=== PATIENT | female | born 1965 | race Caucasian/White ===

== ENCOUNTER → 2021-08-17 14:35 | Outpatient (BNVA) | payer BC, SELFPAY | PROVIDERS: Family Provider Internal Medicine; PCP Internal Medicine; Visit Provider Obstetrics & Gynecology | DX: Z12.4 Encounter for screening for malignant neoplasm of cervix (principal) | CPT/HCPCS: 87624 ==

== ENCOUNTER 2022-01-11 07:34 | Outpatient (CLI) | payer BC, SELFPAY ==
--- NOTE | 2022-01-11 07:41 | MM_ITS ---
WS: [id number] BILATERAL SCREENING DIGITAL BREAST TOMOSYNTHESIS MAMMOGRAM WITH CAD HISTORY: SCREENING COMPARISON: 06/12/2018 Bilateral CC and MLO views with tomosynthesis and synthetic mammography submitted. Computer aided det ection analyzed. Breast composition: The breasts are heterogeneously dense, which may obscure small masses. No suspici ous masses, microcalcifications or architectural distortion. Patchy scattered fibroglandular densitie s throughout each breast. No interval change. MM/[place] [id number] IMPRESSION: BI-RADS: 2-Benign FOLLOW UP: 1 Year Follow-up
== END 2022-01-11 07:35 | disposition home or self-care (01) ==
PROVIDERS: PCP Internal Medicine; Visit Provider Family Medicine
DX: Z12.31 Encounter for screening mammogram for malignant neoplasm of breast (principal)
CPT/HCPCS: 77063; 77067

== ENCOUNTER → 2022-08-23 10:50 | Outpatient (BNVA) | payer OTHER, SELFPAY | PROVIDERS: PCP Family Medicine; Visit Provider Obstetrics & Gynecology | DX: Z00.00 Encounter for general adult medical examination without abnormal findings (principal) | CPT/HCPCS: 80053; 80061; 83721; 84443; 85025 ==

== ENCOUNTER → 2024-01-07 10:26 | Outpatient (BNVA) | payer OTHER, SELFPAY | PROVIDERS: PCP Family Medicine; Visit Provider Family Medicine | DX: Z78.0 Asymptomatic menopausal state (principal); E11.9 Type 2 diabetes mellitus without complications | CPT/HCPCS: 80053; 80061; 82607; 83880; 84443; 85025 ==

== ENCOUNTER 2024-02-24 10:03 | Emergency (ER) | payer OTHER, SELFPAY ==
[2024-02-24 10:10] VITALS: BP 197/124; PULSE 109; RESP 20; TEMP 36.7; O2SAT 97
--- NOTE | 2024-02-24 11:04 | XRR_ITS ---
PROCEDURE INFORMATION: Exam: XR Chest Exam date and time: 02/24/2024 11:17 AM Age: 58 years old Clinical indication: Cough and dyspnea; Patient HX: High blood pressure; Additional info: Dyspnea/cough TECHNIQUE: Imaging protocol: Radiologic exam of the chest. Views: 1 view. COMPARISON: No relevant prior studies available. FINDINGS: Lungs: Unremarkable. No consolidation. Pleural spaces: Unremarkable. No pleural effusion. No pneumothorax. Heart/Mediastinum: Unremarkable. No cardiomegaly. Bones/joints: Unremarkable. XR/XR chest 1V portable [id number] IMPRESSION: No acute findings.
--- NOTE | 2024-02-24 11:04 | ECG_ITS ---
[facility] Test Date: 2024-02-24 Pat Name: Hallie Solo Department: Room: Gender: Female [employer] Designer: : 1965 Requested By: Gregorio Kinney Order Number: [id number] Cindi MD: Mc Kumar M.D. Measurements Intervals [place] Rate: 90 P: 59 ID: [id number] QRS: -64 QRSD: 100 T: 64 QT: 369 QTc: 453 Interpretive Statements SINUS RHYTHM POSSIBLE LEFT ATRIAL ENLARGEMENT [-0.1mV P-WAVE IN V1/V2] PATTERN CONSISTENT WITH PULMONARY DISEASE INCOMPLETE RIGHT BUNDLE BRANCH BLOCK [90+ ms QRS DURATION, TERMINAL R IN V1/V2, 40+ ms S IN I/aVL/V4/V5/V6] LEFT ANTERIOR FASCICULAR BLOCK [QRS AXIS <= -45, QR IN I, RS IN II] No previous ECG available for comparison Electronically Signed On 02-24-2024 23:31:58 CDT by Mc Kumar M.D. [id number]
--- NOTE | 2024-02-24 11:05 | W.ED.GENADLT ---
HPI - General Adult General: Chief complaint: General Medical Stated complaint: high blood presure, lose of vision Time Seen by Provider: 02/24/24 10:07 History of Present Illness: 58-year-old female presents to the emergency room with complaints of elevated blood pressure and visual disturbances. This been going on for a couple of weeks intermittently is worse today. No head trauma. She denies chest pain. She is on losartan and hydrochlorothiazide. No history of previous CVA. She has been going through menopause and is recently was started on Premarin as well. Associated symptoms: Deny chest pain, dyspnea or rash Related Data Home Medications Medication Instructions Recorded Confirmed conjugated estrogens 0.625 mg 0.625 mg PO DAILY 02/24/24 02/24/24 tablet (Premarin) Previous Rx's Medication Instructions Recorded hydrochlorothiazide 12.5 mg tablet 12.5 mg PO DAILY #30 tabs 02/12/24 losartan 25 mg tablet 25 mg PO BID #60 tabs 02/12/24 metoprolol succinate 25 mg 25 mg PO DAILY #30 tabs 02/24/24 tablet,extended release 24 hr (Toprol XL) ondansetron HCl 4 mg tablet 4 mg PO Q6H PRN nausea and 02/24/24 vomiting #20 tabs Allergies Allergy/AdvReac Type Severity Reaction Status Date / Time aspirin Allergy Intermediate hives Verified 02/12/24 10:33 mesalamine [From Asacol] Allergy hives Verified 02/12/24 10:33 Penicillins Allergy hives Verified 02/12/24 10:33 Review of Systems Const: Denies: fever(s) or chills Card: Denies: chest pain Resp: Denies: dyspnea GI: Denies: abdominal pain : Denies: dysuria, urinary frequency or urinary urgency Musc: Denies: neck pain or back pain Skin/Breast: Denies: rash PFSH ED PFSH: Medical History Essential hypertension Menopause Surgical History History of tonsillectomy and adenoidectomy (~1974) age 8 Family History Mother Hypertension Hypercholesteremia Stroke Denies family history of Diabetes CAD (coronary artery disease) Clotting disorder Chronic kidney disease (CKD) Bleeding disorder Cancer Social History (Updated 02/12/24 @ 10:45 by Merritt Hester NP) Smoking and tobacco/nicotine status: never used tobacco/nicotine Alcohol intake: never Substance/Drug Use: current Substance/Drug use frequency: Special occassions/opportunity only Physical Exam Const: COMMON NORMALS: no acute distress GENERAL APPEARANCE: cooperative and comfortable ORIENTATION/CONSCIOUSNESS: Yes awake, Yes oriented to person, Yes oriented to place and Yes oriented to time HENMT: COMMON NORMALS: normocephalic, atraumatic and hearing grossly normal bilaterally HEAD & SCALP: normocephalic and atraumatic Resp: COMMON NORMALS: normal respiratory effort, No retractions, No use of accessory muscles and clear to auscultation bilaterally AUSCULTATION: clear to auscultation bilaterally Cardio: COMMON NORMALS: regular rate, regular rhythm and No murmurs present (Cardio) RATE: regular rate RHYTHM: regular rhythm GI: COMMON NORMALS: Soft to palpation and No hepatosplenomegaly present AUSCULTATION: Yes normoactive bowel sounds PALPATION: Yes Soft to palpation, No Tenderness to palpation present (GI), No Guarding due to palpation present (GI) and Yes No hepatosplenomegaly present Extremity: COMMON NORMALS: normal to inspection, capillary refill normal, no clubbing, cyanosis or edema, no calf tenderness and no pedal edema Neuro: SENSORIUM/ORIENTATION: Yes oriented to person, Yes oriented to place and Yes oriented to time OTHER: No focal neurologic deficits noted NIH is 0. Patient does have a baseline speech impediment her states that time she has had more difficulty than usual with her speech however currently is at her normal baseline Skin: COMMON NORMALS: no rashes or lesions noted GENERAL SKIN EXAM: no rashes or lesions noted Course Vital Signs: Vital signs: Vital Signs Temperature 98.0 F 02/24/24 10:10 Pulse Rate 93 02/24/24 15:25 Respiratory Rate 18 02/24/24 15:25 Blood Pressure 180/102 02/24/24 15:25 Pulse Oximetry 100 02/24/24 15:25 Oxygen Delivery Me thod Room Air 02/24/24 11:41 MDM - General Adult Medical Decision Making Blood pressure improved to 136 range this time I discussed with her the CT findings after that her blood pressure did go up quite a bit I think this is more anxiety we did not treated any further. She acknowledged as well that she felt it was more anxiety related. She had already stopped her Premarin and advised her to stay off of that for now continue the hydrochlorothiazide and losartan add Toprol-XL 25 p.o. daily. She can use ondansetron for nausea. She was hypokalemic which was treated with oral potassium supplementation. CT shows significant liver masses will require further evaluation. Liver enzymes are also elevated discussed with her primary care physician he will arrange further imaging and biopsy of these masses. Medical Records I reviewed the patient's medical records. Lab Data I reviewed the patient's lab results. 02/24/24 11:25 02/24/24 11:25 Radiology Impressions Chest X-Ray 02/24/24 11:04 IMPRESSION: No acute findings. Abdomen/Pelvis CT 02/24/24 12:03 IMPRESSION: 1. Markedly abnormal liver. Liver is markedly enlarged with multiple masses throughout the liver. These masses are very large and extend through greater than 50% of the normal liver parenchyma. Highly suspicious for metastatic disease until proven otherwise. 2. Small amount of fluid along the RIGHT lobe of the liver and in the RIGHT pelvis. 3. Curvilinear and round calcifications in the gallbladder. Gallbladder is poorly visualized. 4. Possible pancreatic head mass. Pancreatic head mass versus adenopathy or caudate lobe enlargement with neoplasm. 5. No renal obstruction. 6. Patient will need additional work-up of the abdominal findings. RIGHT upper quadrant ultrasound, PET/CT imaging, CT abdomen and pelvis with IV and oral contrast may all be of benefit. Gallbladder Ultrasound 02/24/24 12:34 IMPRESSION: 1. Markedly enlarged liver with multiple, large masses. Masses are on a background of hepatic steatosis. Masses were confirmed by noncontrast CT also. Liver and pancreas need to be further evaluated. Recommend follow-up PET/CT imaging and CT abdomen and pelvis with IV and oral contrast. Dual phase imaging of the abdomen CT recommended. Good oral contrast will be necessary. 2. Contracted gallbladder with stones. Head CT 02/24/24 13:28 IMPRESSION: 1. No enhancing intracranial mass. No evidence for metastatic disease to the brain by CT. 2. Mild volume loss and atrophy. No prior infarct. 3. No sinus disease. Laboratory Results WBC 17.34 10^3/uL (3.29-11.43) H 02/24/24 11:25 RBC 5.09 10^6/uL (3.85-5.65) 02/24/24 11:25 Hgb 15.10 g/dL (11.27-16.99) 02/24/24 11:25 Hct 46.0 % (36-47) 02/24/24 11:25 MCV 90.4 fl (85-98) 02/24/24 11:25 MCH 29.7 pg (27-33) 02/24/24 11:25 MCHC 32.8 g/dL (30-55) 02/24/24 11:25 RDW 15.3 % (12.1-15.1) H 02/24/24 11:25 Plt Count 415 10^3/cmm (157-399) H 02/24/24 11:25 MPV 8.7 fL (7.4-10.4) 02/24/24 11:25 Neut % (Auto) 82.1 % 02/24/24 11:25 Lymph % (Auto) 10.1 % 02/24/24 11:25 Millard % (Auto) 6.3 % 02/24/24 11:25 Eos % (Auto) 0.0 % 02/24/24 11:25 Baso % (Auto) 0.2 % 02/24/24 11:25 Neut # (Auto) 14.25 10^3/uL (1.8-7.7) H 02/24/24 11:25 Lymph # (Auto) 1.8 10^3/uL (0.8-4.8) 02/24/24 11:25 Millard # (Auto) 1.1 10^3/uL (0.2-0.9) H 02/24/24 11:25 Eos # (Auto) 0.0 10^3/uL (0.0-0.8) 02/24/24 11:25 Baso # (Auto) 0.0 10^3/uL (0.0-0.1) 02/24/24 11:25 Nucleated RBC % (auto) 0 % 02/24/24 11:25 Nucleated RBCs # 0.0 /100WBC 02/24/24 11:25 Sodium 140 mmol/L (136-145) 02/24/24 11:25 Potassium 2.9 mmol/L (3.5-5.1) L 02/24/24 11:25 Chloride 97 mmol/L (98-107) L 02/24/24 11:25 Carbon Dioxide 26 mmol/L (22-29) 02/24/24 11:25 Anion Gap 19.9 (5-19) H 02/24/24 11:25 BUN 19 mg/dL (6-20) 02/24/24 11:25 Creatinine 0.7 mg/dL (0.5-0.9) 02/24/24 11:25 GFR Calculation 85.9 mL/min (90-130) L 02/24/24 11:25 Glucose 106 mg/dL (65-115) 02/24/24 11:25 Calculated Osmolality 293 mOsm/kg (285-295) 02/24/24 11:25 Calcium 8.9 mg/dL (8.5-10.5) 02/24/24 11:25 Total Bilirubin 0.5 mg/dL (0.15-1.2) 02/24/24 11:25 AST 236 U/L (0-32) H 02/24/24 11:25 ALT 113 U/L (0-33) H 02/24/24 11:25 Alkaline Phosphatase 314 U/L (35-105) H 02/24/24 11:25 Total Protein 7.1 g/dL (6.6-8.7) 02/24/24 11:25 Albumin 4.0 g/dL (3.5-5.2) 02/24/24 11:25 Globulin 3.1 g/dL (1.3-4.6) 02/24/24 11:25 Lipase 14 U/L (13-60) 02/24/24 11:25 Urine Color Yellow (Yellow) 02/24/24 11:50 Urine Appearance Clear (CLEAR) 02/24/24 11:50 Urine pH 8 (5-7) A 02/24/24 11:50 Ur Specific [place] 1.010 (1.005-1.030) 02/24/24 11:50 Urine Protein Neg (Negative) 02/24/24 11:50 Urine Glucose (UA) Norm (Normal) 02/24/24 11:50 Urine Ketones Negative (Negative) 02/24/24 11:50 Urine Blood Neg (Negative) 02/24/24 11:50 Urine Nitrate Negative (Negative) 02/24/24 11:50 Urine Bilirubin Neg (Negative) 02/24/24 11:50 Urine Urobilinogen Norm mg/dL (Negative) 02/24/24 11:50 Ur Leukocyte Esterase Negative (Negative) 02/24/24 11:50 Amorphous Sediment Not Reportable 02/24/24 11:50 Hepatitis A IgM Ab Non-reactive (Nonreactive) 02/24/24 11:25 Hep Bs Antigen Non-reactive (Nonreactive) 02/24/24 11:25 Hep B Core IgM Ab Non-reactive (Nonreactive) 02/24/24 11:25 Hepatitis C Antibody Non-reactive (Nonreactive) 02/24/24 11:25 All radiology interpretation(s) finalized by discharge Discharge Plan Discharge Patient Disposition: Home Clinical Impression: Essential hypertension, Liver masses, Pancreatic mass Condition: Stable Prescriptions: New ondansetron HCl 4 mg tablet 4 mg PO Q6H PRN (Reason: nausea and vomiting) Qty: 20 0RF Toprol XL 25 mg tablet extended release 24 hr 25 mg PO DAILY Qty: 30 0RF No Action losartan 25 mg tablet 25 mg PO BID Qty: 60 0RF hydrochlorothiazide 12.5 mg tablet 12.5 mg PO DAILY Qty: 30 0RF Premarin 0.625 mg tablet 0.625 mg PO DAILY Discharge Orders: Discharge ED (Routine); Ordered 02/24/24 Ordered By: Gregorio Ceballos Referrals: Suman Stark MD [Primary Care Provider] - Discharge Diet: Usual diet Discharge Activity: Increase activity as tolerated Patient Instructions: Opioid Safety, Pain Management Activity Restrictions/Additional Instructions: Thank you for choosing [facility] for your healthcare needs today. It is very important that you follow up as instructed or that you return to the Emergency Department should you have concerns or if your condition changes or worsens in any way. You were seen in the emergency room with complaints of elevated blood pressure. CT of your head was negative. Do recommend you continue your current blood pressure medications and started on metoprolol XL 25 mg once daily you should follow-up with your primary care doctor to recheck your blood pressure. Additionally labs showed elevated liver functions that will require further evaluation. I have discussed with your primary care doctor recommend that you follow-up with him as soon as you are able and he will make arrangements for further evaluation including possible further imaging and biopsy if deemed appropriate. Coding Level of Care Code ED Non Destructive Evaluation Manager for Thang Sesay NIH stroke score NIHSS Level Of Consciousness - 1a: 0 Level Of Consciousness Questions - 1b: Both Correct Level Of Consciousness Commands - 1c: Both Correct Best Gaze - 2: Normal Visual Serrano - 3: No Visual Loss Facial Palsy - 4: Normal Motor Arm Right - 5: No Drift Motor Arm Left - 5: No Drift Motor Leg Right - 6: No Drift Motor Leg Left - 6: No Drift Limb Ataxia - 7: Absent Sensory - 8: Normal Best Language - 9: No Aphasia Dysarthia - 10: Normal (Patient has baseline speech impediment due to hearing loss) Extinction And Inattention - 11: 0 Score Total Score: 0
[2024-02-24] MEDS: amlodipine 10 mg Tablet PO (11:13)
[2024-02-24] MEDS: labetalol 5 mg/mL SDV 20mL 10 MG IVP (11:30)
[2024-02-24] MEDS: hyDRALAzine 20 mg/mL INJ 1 mL 10 MG IVP (11:30)
[2024-02-24 11:36] LABS: Basophils % 0.2 %; Lymphocytes # 1.8 10^3/uL (0.8-4.8); Lymphocytes % 10.1 %; Mean Corpuscular HGB Conc 32.8 g/dL (30-55); Mean Corpuscular Hemoglobin 29.7 pg (27-33); Mean Corpuscular Volume 90.4 fl (85-98); Mean Platelet Volume 8.7 fL (7.4-10.4); Monocytes # 1.1 10^3/uL (0.2-0.9); Monocytes % 6.3 %; Neutrophils # 14.25 10^3/uL (1.8-7.7); Neutrophils % 82.1 %; Nucleated Red Blood Cells % 0 %; Platelet Count 415 10^3/cmm (157-399); Red Blood Count 5.09 10^6/uL (3.85-5.65); Red Cell Distribution Width 15.3 % (12.1-15.1); White Blood Count 17.34 10^3/uL (3.29-11.43)
[2024-02-24 11:41] VITALS: BP 179/111; PULSE 87; RESP 17; O2SAT 97
[2024-02-24 11:52] LABS: Alanine Aminotransferase 113 U/L (0-33); Alkaline Phosphatase 314 U/L (35-105); Anion Gap 19.9 (5-19); Aspartate Amino Transferase 236 U/L (0-32); Blood Urea Nitrogen 19 mg/dL (6-20); Calcium 8.9 mg/dL (8.5-10.5); Carbon Dioxide 26 mmol/L (22-29); Chloride 97 mmol/L (98-107); Creatinine Clr Calc Pharmacy 91.2069; Globulin 3.1 g/dL (1.3-4.6); Glomerular Filtration Rate 85.9 mL/min (90-130); Glucose 106 mg/dL (65-115); Lipase 14 U/L (13-60); Osmolality Calculated 293 mOsm/kg (285-295); Sodium 140 mmol/L (136-145); Total Bilirubin 0.5 mg/dL (0.15-1.2); Total Protein 7.1 g/dL (6.6-8.7)
[2024-02-24 11:54] LABS: Charge for UA Resulting for Rev
[2024-02-24 11:59] LABS: Bilirubin Urine Neg (Negative); Blood Urine Neg (Negative); Glucose Urine UA Norm (Normal); Ketones Urine Negative (Negative); Leukocyte Esterase Urine Negative (Negative); Nitrate Urine Negative (Negative); Protein Urine Neg (Negative); Urine Appearance Clear (CLEAR); Urine Color Yellow (Yellow); Urobilinogen Urine Norm (Negative); pH Urine 8 (5-7)
[2024-02-24 12:02] LABS: Potassium 2.9 mmol/L (3.5-5.1)
--- NOTE | 2024-02-24 12:03 | CT_ITS ---
WS: [id number] CT ABDOMEN AND PELVIS NONCONTRAST HISTORY: Abdominal pain TECHNIQUE: Imaging performed through the abdomen and pelvis. Coronal and sagittal reformats are submi tted. All CT scans at [facility] use at least one of these dose optimization techniques: auto mated exposure control; mA and/or kV adjustment per patient size (includes targeted exams where dose is matched to clinical indication); or iterative reconstruction. DLP: 664.18 mGy.cm COMPARISON: None available. Lower thorax: Lung bases are clear. Visualized heart is normal. No hiatal hernia. Liver: Markedly abnormal liver. Liver is enlarged extending over a length of 22 cm and transversely b y 24 cm. Areas of decreased attenuation throughout the liver are highly suspicious for liver masses. One of the largest masses approaches 12.7 x 10.6 cm. There are masses within the RIGHT and LEFT lobes of the liver replacing majority of the normal liver parenchyma. Gallbladder: There is a focal cluster of calcifications in the gallbladder fossa. These are round and curvilinear calcifications. Suspect this may be a porcelain gallbladder stone filled gallbladder. A partially distended fluid-filled gallbladder is also present. Pancreas: Pancreas is poorly visualized. There is a hypoechoic mass in the region of the pancreatic h ead measuring 2.6 x 2.2 cm. This but could potentially represent a pancreatic head mass. The distal p ancreas is mildly atrophic. Spleen: Normal. Adrenal glands: Normal. No mass. Right kidney: Normal size kidney with no mass or hydronephrosis. Left kidney: Normal size kidney with no mass or hydronephrosis. Aorta: Normal abdominal aorta, no aneurysm or atherosclerosis. There is a small amount of fluid along the RIGHT lobe of the liver towards the paracolic gutter. Smal l amount of free fluid in the pelvis. No free air. Lymph node 10 mm. Additional lymph nodes may be present in the sally hepatis but not identified witho ut IV and oral contrast. GI tract: Stomach is being posteriorly positioned and compressed by the markedly enlarged liver. No s mall bowel obstruction. Mild diverticular disease in the distal colon. No constipation or obstruction of the colon. Appendix is not definitely identified. Abdominal wall: Negative. No hernia. Pelvis: No adenopathy. Tiny amount of free fluid in the RIGHT pelvis. Negative bladder. Osseous structures: Grade 1 anterolisthesis L5 with bilateral pars defects at L5. No destructive bone lesions. CT/CT abdomen pelvis wo con [id number] IMPRESSION: 1. Markedly abnormal liver. Liver is markedly enlarged with multiple masses th roughout the liver. These masses are very large and extend through greater than 50% of the normal liver parenchyma. Highly suspicious for metastatic disease u ntil proven otherwise. 2. Small amount of fluid along the RIGHT lobe of the liver and in the RIGHT pe lvis. 3. Curvilinear and round calcifications in the gallbladder. Gallbladder is poo rly visualized. 4. Possible pancreatic head mass. Pancreatic head mass versus adenopathy or ca udate lobe enlargement with neoplasm. 5. No renal obstruction. 6. Patient will need additional work-up of the abdominal findings. RIGHT upper quadrant ultrasound, PET/CT imaging, CT abdomen and pelvis with IV and oral co ntrast may all be of benefit.
[2024-02-24] MEDS: potassium chloride oral liq 20 mEq/15 mL UDC 40 MEQ PO (12:32)
--- NOTE | 2024-02-24 12:34 | US_ITS ---
WS: [id number] RIGHT UPPER QUADRANT ULTRASOUND HISTORY: elevated LFTS COMPARISON: None available. Liver: 24.6 cm in length. Markedly enlarged liver. Very abnormal liver. There are multiple masses thr oughout the liver. These masses are on a background of hepatic steatosis. The masses are of slight in creased echogenicity and variable echogenicity. Masses are difficult to define due to the background of hepatic steatosis. Largest mass identified measures 7.2 x 7.6 x 7.7 cm. Portal Vein: Loss of the normal portal vein waveform. More cyclical waveform is identified within nor mal. Gallbladder: Mildly contracted gallbladder with stones. CBD: 0.3 cm Pancreas: Not well visualized. Cannot confirm or exclude pancreatic head mass. Right kidney: 10.9 cm in length. Normal size and echogenicity. No hydronephrosis or mass. Aorta and IVC: Unremarkable abdominal aorta and IVC. The ascites seen by CT is not visualized by ultrasound. US/US gall bladder [id number] IMPRESSION: 1. Markedly enlarged liver with multiple, large masses. Masses are on a backgr ound of hepatic steatosis. Masses were confirmed by noncontrast CT also. Liver and pancreas need to be further evaluated. Recommend follow-up PET/CT imaging a nd CT abdomen and pelvis with IV and oral contrast. Dual phase imaging of the a bdomen CT recommended. Good oral contrast will be necessary. 2. Contracted gallbladder with stones.
[2024-02-24 12:54] LABS: Hepatitis A Antibody IgM Non-Reactive (Nonreactive); Hepatitis B Core IgM Non-Reactive (Nonreactive); Hepatitis B Surface Antigen Non-Reactive (Nonreactive); Hepatitis C Virus Antibody Non-Reactive (Nonreactive)
[2024-02-24 13:00] VITALS: BP 136/78
--- NOTE | 2024-02-24 13:21 | PC.PHAR ---
Pt has stopped Premarin 0.625mg
--- NOTE | 2024-02-24 13:28 | CT_ITS ---
WS: [id number] CT HEAD WITH AND WITHOUT CONTRAST HISTORY: liver mass/vision changes TECHNIQUE: Noncontrast 2.5 mm axial images obtained from the vertex to the skull base. Additional ida ging performed at 2.5 mm axial images status post IV contrast. Bone and soft tissue windows are revie wed. All CT scans at [facility] use at least one of these dose optimization techniques: autom ated exposure control; mA and/or kV adjustment per patient size (includes targeted exams where dose i s matched to clinical indication); or iterative reconstruction. CONTRAST: Omnipaque 350; 100 mL IV. DLP: 2135.78 mGy.cm COMPARISON: None available. No acute intracranial hemorrhage, edema or midline shift. Mild volume loss and very minimal small ves crystal disease. No prior infarct. No focal area of edema or sulcal effacement. No enhancing mass or vascular malformations identified. Dural venous sinuses are normally enhancing. Visualized [place] is unremarkable. Paranasal sinuses as visualized: Clear. Mastoid air cells: Clear. Calvarium and scalp: Intact. CT/CT head wo/w con [id number] IMPRESSION: 1. No enhancing intracranial mass. No evidence for metastatic disease to the b rain by CT. 2. Mild volume loss and atrophy. No prior infarct. 3. No sinus disease.
[2024-02-24] MEDS: iohexol 350 mg/mL 500 mL Btl (per mL) IV (13:41)
[2024-02-24 15:25] VITALS: BP 180/102; PULSE 93; RESP 18; O2SAT 100
== END 2024-02-24 15:27 | disposition home or self-care (01) ==
PROVIDERS: Emergency Provider Family Medicine; PCP Family Medicine
DX: I10 Essential (primary) hypertension (principal); K86.9 Disease of pancreas, unspecified; R16.0 Hepatomegaly, not elsewhere classified
CPT/HCPCS: 70470; 71045; 74176; 76705; 80053; 80074; 81003; 81015; 83690; 85025; 93005; 96374; 96375; 99285; J0360; J3490; Q9967

== ENCOUNTER 2024-03-02 08:02 | Outpatient (CLI) | payer OTHER, SELFPAY ==
--- NOTE | 2024-03-02 08:30 | CTR_ITS ---
PROCEDURE INFORMATION: Exam: CT Abdomen And Pelvis Without And With Contrast Exam date and time: 03/02/2024 10:08 AM Age: 58 years old Clinical indication: Abnormal findings; Abnormal radiologic finding of the abdomen; Radiologic exam and body structure: US gb; Patient HX: Liver masses f/u. Liver protocol; Additional info: Liver masses, CT abdomen and pelvis with iv and oral contrast. Dual phase TECHNIQUE: Imaging protocol: Computed tomography of the abdomen and pelvis without and with contrast. Radiation optimization: All CT scans at this facility use at least one of these dose optimization techniques: automated exposure control; mA and/or kV adjustment per patient size (includes targeted exams where dose is matched to clinical indication); or iterative reconstruction. Contrast material: OMNI 350; Contrast volume: 100 ml; Contrast route: INTRAVENOUS (IV); COMPARISON: CT abdomen pelvis wo con [id number] 02/24/2024 12:37 PM RADIATION DOSE METRICS: Total DLP (mGy-cm): 1876.68 FINDINGS: Lungs: No significant infiltrate or effusion is seen within the visualized lung bases. Liver: Liver is enlarged and demonstrates multiple large size heterogeneous masses with partial enhancement when correlating all imaging sequences. These become more delineated on the venous and delayed IV contrast images in relation to the arterial phase IV contrast images, though with significant low-density component suggesting necrotic masses. Gallbladder and biliary ducts: Multiple gallstones or cholelithiasis along with probable component of gallbladder wall calcification or porcelain gallbladder. This was noted with prior exam. No significant biliary ductal dilatation. Pancreas: Heterogeneous predominant hypodense irregular mass is seen at the body of the pancreas inferior to the left lobe of the liver, best delineated on the arterial phase IV contrast images. This mass measures approximately 4 x 3 cm. No significant ductal dilatation. Spleen: Normal. No splenomegaly. Adrenal glands: Normal. No mass. Kidneys and ureters: Normal. No hydronephrosis. Stomach and bowel: No obstruction. No significant mucosal thickening. A few noninflamed scattered colonic diverticula. Appendix: No evidence of appendicitis. Intraperitoneal space: Small amount of free fluid along the right lobe of the liver. No significant ascites otherwise. No free air. Vasculature: Nonaneurysmal abdominal aorta. Major vascular structures appear patent. Lymph nodes: Periportal and upper periaortic lymphadenopathy suggested. Urinary bladder: Mild nonspecific urinary bladder wall thickening. Correlate with urinalysis otherwise. Reproductive: Unremarkable as visualized. Bones/joints: Spondylotic change of the spine with degenerative disc disease L5-S1 and [id number] spondylolisthesis L5-S1. No acute osseous abnormality. Soft tissues: Unremarkable. CT/CT abdomen pelvis wo/w [id number] IMPRESSION: 1. Heterogeneous predominant hypodense irregular mass is seen in the body of the pancreas inferior to the left lobe of the liver, best delineated on the arterial phase images, measuring approximately 4 x 3 cm. Pancreatic malignancy is the main consideration particularly with findings of multiple large heterogeneous/partially necrotic masses within the liver suggestive of metastatic disease. Secondary hepatomegaly. 2. Periportal and upper periaortic lymphadenopathy suggested. Small amount of free fluid noted about the margin of the right lobe of the liver as well. 3. 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 4. PET-CT imaging could be performed for further evaluation otherwise.
[2024-03-02] MEDS: iohexol 350 mg/mL 500 mL Btl (per mL) PO (09:08)
[2024-03-02] MEDS: iohexol 350 mg/mL 500 mL Btl (per mL) IV (10:24)
== END 2024-03-02 08:03 | disposition home or self-care (01) ==
LOC: RAD 08:02
PROVIDERS: PCP Family Medicine; Visit Provider Family Medicine
DX: R16.0 Hepatomegaly, not elsewhere classified (principal); K86.89 Other specified diseases of pancreas; K80.20 Calculus of gallbladder without cholecystitis without obstruction; K86.9 Disease of pancreas, unspecified; R59.0 Localized enlarged lymph nodes
CPT/HCPCS: 74178; Q9967

== ENCOUNTER 2024-03-31 07:13 | Day surgery (SDC) | payer OTHER, SELFPAY ==
--- NOTE | 2024-03-31 07:26 | SC_ITS ---
WS: [id number] C-arm fluoroscopy for infusion port catheter placement, 03/31/2024 Clinical Data: port placement Comparison: Portable chest, 02/24/2024 Findings: Dr. Britton inserted a right infusion port catheter. SC/C-arm FL for CVA [id number] Impression: Impression right infusion port.
[2024-03-31 07:49] VITALS: BP 189/121; PULSE 82; RESP 16; TEMP 36.9; O2SAT 96
--- NOTE | 2024-03-31 08:04 | W.PM.OPSUD ---
Surgery/Procedure H&P Update DATE OF PROCEDURE: March 31, 2024 DATE H&P PERFORMED: 03/24/24 H&P UPDATE INFORMATION: I have reviewed H&P completed within last 30 days, I have examined patient prior to procedure and No changes to prior documentation PLANNED PROCEDURE: Operation Date: 03/31/24 09:05 Proposed Procedures p Portacath Placement 48042, C25.1(Not Applicable) - Ramirez Fajardo MD
[2024-03-31] MEDS: sodium chloride 0.9% 1,000 ML 30 ML IV (08:18)
[2024-03-31 08:26] VITALS: BMI 27.3
--- NOTE | 2024-03-31 08:39 | P.ANESASSM_ITS ---
Pre-Anesthetic Assessment Height/Weight: Height 1.65 m Weight 74.389 kg Temp Pulse Resp BP Pulse Ox O2 Del Method 98.4 F 82 16 189/121 96 Room Air 03/31/24 07:49 03/31/24 07:49 03/31/24 07:49 03/31/24 07:49 03/31/24 07:49 03/31/24 07:50 Operation Date: 03/31/24 09:05 Proposed Procedures p Portacath Placement 54905, C25.1(Not Applicable) - aRmirez Fajardo MD Familial anesthetic complications: None Was Beta Bela taken within 24 hours: N/A Was Clonidine taken within 24 hours: N/A Last intake: Intake Last Liquid Date 03/30/24 Last Liquid Time 20:00 Last Solid Date 03/30/24 Last Solid Time 19:00 Social No alcohol and No tobacco Exam alert, oriented x 3, clear to auscultation bilaterally and regular rate & rhythm Airway Mallampati: Class I Dentition: full CV/HEM Hypertension Metabolic pancreas Anesthetic Plan ASA status: 4 Anesthesia: MAC Risk of > 500 ml blood loss (7ml/kg in children): No Medications/Allergies Home Medications Medication Instructions Recorded Confirmed Last Taken Type ondansetron HCl 4 mg tablet 4 mg PO Q6H PRN nausea and 02/24/24 03/30/24 Unknown Rx vomiting #20 tabs losartan 50 mg tablet 50 mg PO BID #60 tabs 03/03/24 03/30/24 03/30/24 Rx metoprolol succinate 50 mg 50 mg PO DAILY #30 tabs 03/03/24 03/30/24 03/31/24 Rx tablet,extended release 24 hr potassium chloride 20 mEq 20 meq PO BID #60 tabs 03/03/24 03/24/24 03/30/24 Rx tablet,extended release hydrochlorothiazide 12.5 mg tablet 12.5 mg PO DAILY #30 tabs 03/09/24 03/30/24 03/30/24 Rx hydralazine 10 mg tablet 10 mg PO BID #60 tabs 03/18/24 03/30/24 03/30/24 Rx clonazepam 1 mg tablet (Klonopin) 1 mg PO BID PRN sleep/ anxiety #60 03/29/24 03/30/24 Unknown Rx tabs diphenoxylate-atropine 2.5 2 tab PO QID PRN diarrhea #60 tabs 03/29/24 03/30/24 Unknown Rx mg-0.025 mg tablet (Lomotil) lorazepam 1 mg tablet 0.5 - 1 mg (0.5 - 1 x 1 mg) PO Q6H 03/29/24 03/30/24 Unknown Rx PRN severe nausea #30 tabs prochlorperazine maleate 10 mg 10 mg PO Q4H PRN mild nausea #30 03/29/24 03/30/24 03/30/24 Rx tablet (Compazine) tabs Allergies Allergy/AdvReac Type Severity Reaction Status Date / Time aspirin Allergy Intermediate hives Verified 03/30/24 12:28 mesalamine [From Asacol] Allergy hives Verified 03/30/24 12:28 Penicillins Allergy hives Verified 03/30/24 12:28 Current Medications Generic Name Dose Route Start Last Admin Trade Name Freq PRN Reason Stop Dose Admin Sodium Chloride 1,000 mls @ 30 mls/hr 03/31/24 07:30 03/31/24 08:18 Sodium Chloride 0.9% IV 04/01/24 07:29 30 mls/hr .Q24H REY Administration PFSH Anesthesia Medical History Anxiety Hearing loss Adenocarcinoma of pancreas Essential hypertension Menopause Surgical History History of tonsillectomy and adenoidectomy (~1975) age 8 Family History Mother Hypertension Hypercholesteremia Stroke Father COPD (chronic obstructive pulmonary disease) Denies family history of Diabetes CAD (coronary artery disease) Clotting disorder Chronic kidney disease (CKD) Bleeding disorder Cancer Social History Smoking and tobacco/nicotine status: never used tobacco/nicotine Alcohol intake: current Alcohol intake frequency: holidays/special occasions only Substance/Drug Use: current Substance/Drug use frequency: Special occassions/opportunity only Data Anesthesia 03/31/24 08:10 Cardiac Studies: 2 No Data to Display
[2024-03-31 08:40] LABS: Anion Gap 17.6 (5-19); Blood Urea Nitrogen 36 mg/dL (6-20); Carbon Dioxide 27 mmol/L (22-29); Chloride 104 mmol/L (98-107); Creatinine Clr Calc Pharmacy 103.1876; Glomerular Filtration Rate 102.7 mL/min (90-130); Glucose 117 mg/dL (65-115); Osmolality Calculated 309 mOsm/kg (285-295); Potassium 3.6 mmol/L (3.5-5.1); Sodium 145 mmol/L (136-145)
[2024-03-31] MEDS: midazolam 1 mg/mL INJ 2 mL 2 MG IVP (08:44)
[2024-03-31] MEDS: ceFAZolin 2,000 mg SDV 2000 MG IVP (11:22)
[2024-03-31] MEDS: lidocaine-epi 1% 20 mL INJ 10 ML INJECTION (11:39)
[2024-03-31] MEDS: BUPivacaine 0.25% INJ 10 mL INJECTION (11:39)
[2024-03-31] MEDS: heparin, porcine 1,000 unit/mL INJ 10 mL 10000 UNIT IRRIGATION (11:40)
--- NOTE | 2024-03-31 12:20 | W.PM.BPONFUL ---
Pathology: NA Implant(s): port-a-cath Anesthesia: MAC Complications: None Brief history/preop diagnosis: 58yo female who presented for port placement for chemotherapy. Discussed risks and benefits and patient agreed to proceed with surgery. Full operative report: Patient was brought into the operating room and a timeout was carried out. Procedure was done under MAC. Patient was placed supine with the arms tucked and in Trendelenburg. Patient was prepped and draped in the usual sterile fashion. Using ultrasound guidance the right internal jugular vein was accessed. A guidewire was then placed down to the atriocaval junction using fluoroscopy. The finder needle was removed and the guidewire was secured. I then turned my attention to creating a pocket over the right chest. Make sure to locally infiltrated using plain lidocaine and bupivacaine at the site of the pocket and throughout the tunnel site. I confirmed adequate hemostasis at the pocket. I then proceeded to place the port that was already preassembled and flushed with heparinized saline and the chest pocket. I tunneled the catheter from the chest to the neck at the site where I accessed the internal jugular vein. I measured and adjusted the length of the catheter so it would reach the atrial caval junction. At this point, I used a dilator to dilate the tract into the internal jugular vein using fluoroscopy. I removed the guidewire and proceeded to thread the central venous catheter through the introducer. In the process, I removed the sheath as a completely pushed the catheter into the internal jugular vein. I then confirmed adequate placement of the catheter by performing intraoperative interpretation of fluoroscopy. The tip of the catheter was confirmed to be placed in the atriocaval junction. There were no kinks noted throughout the trajectory of the catheter. I then proceeded to test the port and was satisfied with its functionality. I proceeded to flushed the catheter without any issues. I then hep-locked the port. Skin was closed using deep dermal 3-0 Vicryl, subcuticular 4-0 Monocryl, and Dermabond. Patient was then transferred to PACU without any complications. Condition: Stable Dispostion: Home
[2024-03-31 12:23] VITALS: BP 130/88; PULSE 77; RESP 16; TEMP 36.1; O2SAT 98
[2024-03-31 12:28] VITALS: BP 133/89; PULSE 78; RESP 16; O2SAT 98
[2024-03-31 12:33] VITALS: BP 132/88; PULSE 84; RESP 16; O2SAT 96
[2024-03-31 12:36] VITALS: BP 161/96; PULSE 97; RESP 16; TEMP 36.1; O2SAT 96
[2024-03-31 13:30] VITALS: BP 171/95; PULSE 72; RESP 16; TEMP 36.6; O2SAT 98
--- NOTE | 2024-03-31 13:55 | ANE.PACU2 ---
Inpatient post-anesthesia follow up: Airway intact: Yes Vital signs: Temperature 97.9 F Pulse Rate 72 Respiratory Rate 16 Blood Pressure 171/95 Pulse Oximetry 98 Oxygen Delivery Me thod Room Air Oxygen Flow Rate 6 Fraction of Inspir ed Oxygen Hydration adequate: Yes Nausea and vomiting: No Pain level: 1 Mental status: Baseline
== END 2024-03-31 13:55 | disposition home or self-care (01) ==
PROVIDERS: Anesthesiology; PCP Family Medicine; Visit Provider Student in an Organized Health Care Education/Training Program
PROC: (CPT 36561; principal; 2024-03-31 08:55)
DX: C25.1 Malignant neoplasm of body of pancreas (principal); F41.9 Anxiety disorder, unspecified; I10 Essential (primary) hypertension
CPT/HCPCS: 36561; 36415; 76000; 77001; 80048; C1788; J0690; J1644; J2250; J2704; J3490; J7030

== ENCOUNTER 2024-04-14 07:59 | Oncology outpatient (recurring) (ONCR) | payer OTHER, SELFPAY ==
[2024-04-14 08:54] LABS: Hematocrit 41.1 % (36-47); Mean Corpuscular HGB Conc 32.6 g/dL (30-55); Mean Corpuscular Hemoglobin 30.6 pg (27-33); Mean Corpuscular Volume 93.8 fl (85-98); Mean Platelet Volume 9.2 fL (7.4-10.4); Platelet Count 323 10^3/cmm (157-399); Red Blood Count 4.38 10^6/uL (3.85-5.65); Red Cell Distribution Width 16.2 % (12.1-15.1); White Blood Count 16.37 10^3/uL (3.29-11.43)
[2024-04-14 09:21] LABS: Alanine Aminotransferase 119 U/L (0-33); Albumin Level 3.5 g/dL (3.5-5.2); Alkaline Phosphatase 413 U/L (35-105); Aspartate Amino Transferase 100 U/L (0-32); Blood Urea Nitrogen 24 mg/dL (6-20); Calcium 8.4 mg/dL (8.5-10.5); Cancer Antigen 19 9 491.8 U/mL (0-35); Carbon Dioxide 31 mmol/L (22-29); Chloride 100 mmol/L (98-107); Globulin 2.5 g/dL (1.3-4.6); Glomerular Filtration Rate 126.7 mL/min (90-130); Glucose 153 mg/dL (65-115); Osmolality Calculated 297 mOsm/kg (285-295); Sodium 140 mmol/L (136-145); Total Bilirubin 0.5 mg/dL (0.15-1.2)
[2024-04-14 09:41] LABS: Slide Review Slide Review Perform
[2024-04-14 09:43] LABS: Absolute Segmented Neutrophil 11.3 10/cmm (1.6-7.1); Band Neutrophils Absolute 1.5 10^3/cmm (0.0-1.2); Lymphocytes 15 %; Monocytes Absolute 0.7 10^3/cmm (0.1-0.6); Segmented Neutrophils 69 %; Total Cells Counted 100 (0-100)
[2024-04-14 09:44] LABS: Absolute Neutrophil 12.8 10^3/cmm (1.4-6.5); Eosinophils 0 %; Lymphocytes Absolute 2.5 10^3/cmm (1.2-3.4); Platelet Estimate Normal (Normal)
[2024-04-14 09:57] LABS: Carcinoembryonic Antigen 3.2 ng/mL (0.0-4.7)
== END 2024-05-06 23:59 | disposition home or self-care (01) ==
LOC: ONCMED 08:01
PROVIDERS: PCP Family Medicine; Visit Provider Internal Medicine Medical Oncology
DX: C25.1 Malignant neoplasm of body of pancreas (principal)
CPT/HCPCS: 80053; 82378; 85007; 85025; 86301